=== PATIENT | female | born 1930 | race African-American/Black ===

== ENCOUNTER → 2018-06-27 | Outpatient (CLI) | payer MEDICARE, OTHER ==
--- NOTE | 2018-06-27 11:05 | Diagnostic Imaging Report ---
EXAMINATION: Head CT HISTORY: Dementia, weakness, stroke 2 weeks ago, dragging the right leg COMPARISON: Brain MRI 10/29/2015 TECHNIQUE: Multidetector axial images were obtained without contrast from the foramen magnum to the vertex . The images were reconstructed using brain and bone algorithms. Thin section brain images were reformatted into coronal and sagittal planes. Intravenous contrast: None. Image quality: Motion/streaking artifact limits the evaluation of the skull base and posterior cranial fossa. FINDINGS: Parenchyma: 1. Progression to moderate white matter chronic microvascular ischemic changes. 2. No mass or hemorrhage. No CT evidence of acute territorial vascular insult. Extra-axial spaces:No abnormal density. No extra-axial fluid collections Brain volume: Disproportionate bilateral medial temporal/hippocampal atrophy, which have be seen in patients with Alzheimer's disease, only in the appropriate clinical setting. Otherwise no disproportionate lobar, mesencephalic, pontine, or cerebellar atrophy. Ventricles: No hydrocephalus or displacement. Arteries: No density suggestive of thrombus. Dural sinuses: No abnormal density. Extra-axial spaces: No abnormal density. Foramen magnum: No mass, Chiari malformation, or basilar invagination. Sella: No obvious mass. Paranasal/mastoid sinuses: Imaged portions unremarkable. Skull/Scalp: No lytic or blastic lesions. No fractures. IMPRESSION: 1. No intracranial mass, hemorrhage or acute cortical infarcts. 2. Worsening, now moderate chronic microvascular ischemic changes compared to MRI on 10/29/2015. 3. Persistent generalized brain volume loss with bilateral medial temporal predominance. Signed by: Dr. Teresa Hernadez M.D. on 06/27/2018 11:02 AM
== END ==
LOC: CT 08:08
PROVIDERS: ATTEND Specialist
DX: F03.90 Unspecified dementia, unspecified severity, without behavioral disturbance, psychotic disturbance, mood disturbance, and anxiety (principal); R53.1 Weakness
CPT/HCPCS: 70450

== ENCOUNTER 2020-02-13 12:11 | Emergency (ER) | payer MEDICARE, OTHER ==
--- OUTSIDE RECORDS SUMMARY | 2020-02-13 12:14 | XMS REPORT ---
Author Author [facility] Address Unknown Phone Unavailable Care Team Providers Care Issuer Name Role Phone MEHRAN FONSECA Unavailable Unavailable Problems This patient has no known problems. Allergies, Adverse Reactions, Alerts This patient has no known allergies or adverse reactions. Medications This patient has no known medications. Results Test Description Test Time Test Comments Text Results Atomic Results Result Comments CT BRAIN WO 2018-06-27 10:39:00 [place] [address] Patient Name: EDITH POWELL MR #: [id number] : 1930 Age/Sex: 87/F Req #: [id number] [facility] Physician: Ordered by: MEHRAN FONSECA MD Report #: [id number] Location: CT Room/Bed: Procedure: [id number] CT/CT BRAIN WO Exam Date: 06/27/18 Exam Time: 0835 REPORT STATUS: Signed ADDENDUM #1 Dose modulation, iterative reconstruction, and/or weight based adjustment of the mA/kV was utilized to reduce the radiation dose to as low as reasonably achievable. Signed by: Dr. Jurgen Gill M.D. on 07/18/2018 10:05 AM ORIGINAL REPORT EXAMINATION: Head CT HISTORY: Dementia, weakness, stroke 2 weeks ago, dragging the right leg COMPARISON: Brain MRI 10/29/2015 TECHNIQUE: Multidetector axial images were obtained without contrast from the foramen magnum to the vertex . The images were reconstructed using brain and bone algorithms. Thin section brain images were reformatted into coronal and sagittal planes. Intravenous contrast: None. Image quality: Motion/streaking artifact limits the evaluation of the skull base and posterior cranial fossa. FINDINGS: Parenchyma: 1. Progression to moderate white matter chronic microvascular ischemic changes. 2. No mass or hemorrhage. No CT evidence of acute territorial vascular insult. Extra-axial spaces:No abnormal density. No extra-axial fluid collections Brain volume: Disproportionate bilateral medial temporal/hippocampal atrophy, which have be seen in patients with Alzheimer's disease, only in the appropriate clinical setting. Otherwise no disproportionate lobar, mesencephalic, pontine, or cerebellar atrophy. Ventricles: No hydrocephalus or displacement. Arteries: No density suggestive of thrombus. Dural sinuses: No abnormal density. Extra-axial spaces: No abnormal density. Foramen magnum: No mass, Chiari malfo rmation, or basilar invagination. Sella: No obvious mass. Paranasal/mastoid sinuses: Imaged portions unremarkable. Skull/Scalp: No lytic or blastic lesions. No fractures. IMPRESSION: 1. No intracranial mass, hemorrhage or acute cortical infarcts. 2. Worsening, now moderate chronic microvascular ischemic changes compared to MRI on 10/29/2015. 3. Persistent generalized brain volume loss with bilateral medial temporal predominance. Signed by: Dr. Jurgen Gill M.D. on 06/27/2018 11:02 AM Dictated By: JURGEN GILL MD [id number] Transcribed By: OSKAR on 06/27/18 1102 COPY TO: MEHRAN FONSECA MD
[2020-02-13 14:22] VITALS: BP 128/77
== END 2020-02-13 14:25 | disposition home or self-care (01) ==
LOC: ER 12:11
DX: R62.7 Adult failure to thrive (principal); L89.309 Pressure ulcer of unspecified buttock, unspecified stage
CPT/HCPCS: 99282